=== PATIENT | female | born 1965 | race Caucasian/White ===

== ENCOUNTER → 2018-08-06 | Outpatient (CLI) | payer OTHER ==
--- NOTE | 2018-08-06 17:18 | RADIOLOGY IMAGING REPORT ---
FACILITY: [facility] [place] PATIENT NAME: Yana De Paz : 1965 MR: [id number] V: [id number] EXAM DATE: ORDERING PHYSICIAN: SEAN ZIEGLER TECHNOLOGIST: Location: [facility] [place] Patient: Yana De Paz : 1965 Visit/Account:[id number] Date of Sevice: 08/06/2018 Exam type: VENOUS DOPP LOW LEFT EXTREMITY History: Bump in left popliteal fossa Comparison: None. Findings: The left lower extremity veins were imaged including the left common femoral vein greater saphenous v ein, superficial femoral vein, popliteal vein, posterior tibial vein, anterior tibial vein, peroneal vein revealing no evidence of intraluminal thrombi. The veins were compressible and demonstrated aug mentation. The superficial vein in the popliteal fossa was thrombosed. This likely represented the superficial femoral vein although was not close to the insertion with the common femoral vein IMPRESSION: 1. No sonographic evidence DVT involving the left lower extremity veins Thrombosis of the superficial greater saphenous vein at the popliteal fossa Report Dictated By: Grazyna Joe MD at 08/06/2018 5:13 PM Report E-Signed By: Grazyna Joe MD at 08/06/2018 5:14 PM WSN:[email or web address]
== END ==
LOC: US 15:55
PROVIDERS: ATTEND Physician Assistant
DX: I82.812 Embolism and thrombosis of superficial veins of left lower extremity (principal); I82.890 Acute embolism and thrombosis of other specified veins